=== PATIENT | female | born 1945 | race African-American/Black ===

== ENCOUNTER → 2017-09-05 | Outpatient (CLI) | payer OTHER ==
--- NOTE | 2017-09-05 14:00 | VAS ---
HISTORY: Extremity pain, swelling, and edema Study: Right lower extremity Doppler venous ultrasound. TECHNIQUE: Multiple desir scale and color flow Doppler images of the deep venous system were obtained of the right lower extremity. FINDINGS: The deep venous system of the right lower extremity evaluated from the level of the common femoral vein through the popliteal vein. Normal color flow and augmentation can be observed. In ad dition, normal compression is seen throughout the deep venous system. IMPRESSION: 1. Negative examination for DVT. Reported By:
== END ==
LOC: RAD 12:33
PROVIDERS: ATTEND Internal Medicine
DX: M79.604 Pain in right leg (principal); R60.1 Generalized edema
CPT/HCPCS: 93971

== ENCOUNTER 2017-09-20 10:15 | Day surgery (SDC) | payer OTHER ==
[~2017-09-20 10:15] MED LIST: TETRACAINE 0.5% OPHTH 1 DOSE AFFEYE ONE
[2017-09-20] MEDS ORDERED: VIGAMOX 0.5% OPHTH 1 DOSE AFFEYE ONE ×5 (10:20→13:52)
[2017-09-20] MEDS ORDERED: PROLENSA OPHTH 1 DOSE AFFEYE ONE (10:31)
[2017-09-20] MEDS ORDERED: ALPHAGAN-P OPHTH 1 DOSE AFFEYE ONE (10:32)
[2017-09-20] MEDS ORDERED: CYCLOGYL 1% OPHTH 1 DOSE OP ONE ×3 (10:33→10:35)
[2017-09-20] MEDS ORDERED: AK-DILATE 2.5% OPHTH 1 DOSE OP ONE ×3 (10:33→10:35)
[2017-09-20] MEDS ORDERED: MYDRIACIL OPHTH 1 DOSE AFFEYE ONE ×3 (10:33→10:35)
[2017-09-20] MEDS ORDERED: NS 500 ML IV 500 ML IV ONE (10:36)
[2017-09-20] MEDS ORDERED: VERSED ONE (10:45)
[2017-09-20] MEDS ORDERED: BETADINE OPHTH SOLN 5% EACHEYE ONE (13:35)
[2017-09-20] MEDS ORDERED: TETRACAINE 0.5% OPHTH 1 DOSE AFFEYE ONE ×2 (13:35→13:41)
[2017-09-20] MEDS ORDERED: XYLOCAINE-MPF 1% IJ ONE (13:41)
[2017-09-20] MEDS ORDERED: ADRENALINE CHL INJ IJ ONE (13:41)
[2017-09-20] MEDS ORDERED: DUOVISC IO ONE (13:41)
[2017-09-20] MEDS ORDERED: BSS OPHTH (PLAIN) 500 ML with VANCOMYCIN HCL 500 MG VIAL 25 MG, ADRENALINE CHL INJ 1 MG IR ONE ×3 (13:41)
[2017-09-20 14:08] VITALS: BP 151/76
== END 2017-09-20 14:12 | disposition home or self-care (01) ==
LOC: SURG1 10:15
PROVIDERS: ATTEND Ophthalmology
PROC: 08DK3ZZ Extraction of Left Lens, Percutaneous Approach (ICD-10-PCS; principal; 2017-09-20 20:15)
PROC: 08RK3JZ Replacement of Left Lens with Synthetic Substitute, Percutaneous Approach (ICD-10-PCS; principal; 2017-09-20 20:15)
DX: H25.12 Age-related nuclear cataract, left eye (principal); H25.012 Cortical age-related cataract, left eye
CPT/HCPCS: 99100; A4217; J0170; J2250; J3370

== ENCOUNTER 2017-10-04 08:02 | Day surgery (SDC) | payer OTHER ==
[2017-10-04] MEDS ORDERED: TETRACAINE 0.5% OPHTH 1 DOSE AFFEYE ONE ×5 (08:05→10:48)
[2017-10-04] MEDS ORDERED: VIGAMOX 0.5% OPHTH 1 DOSE AFFEYE ONE ×5 (08:06→10:48)
[2017-10-04] MEDS ORDERED: PROLENSA OPHTH 1 DOSE AFFEYE ONE (08:17)
[2017-10-04] MEDS ORDERED: ALPHAGAN-P OPHTH 1 DOSE AFFEYE ONE (08:18)
[2017-10-04] MEDS ORDERED: CYCLOGYL 1% OPHTH 1 DOSE OP ONE ×3 (08:19→08:25)
[2017-10-04] MEDS ORDERED: MYDRIACIL OPHTH 1 DOSE AFFEYE ONE ×3 (08:19→08:25)
[2017-10-04] MEDS ORDERED: AK-DILATE 2.5% OPHTH 1 DOSE OP ONE ×3 (08:19→08:25)
[2017-10-04] MEDS ORDERED: NS 500 ML IV 500 ML IV ONE (08:24)
[2017-10-04] MEDS ORDERED: BETADINE OPHTH SOLN 5% EACHEYE ONE (10:30)
[2017-10-04] MEDS ORDERED: ADRENALINE CHL INJ IJ ONE ×3 (10:37→10:48)
[2017-10-04] MEDS ORDERED: BSS OPHTH (PLAIN) 500 ML with VANCOMYCIN HCL 500 MG VIAL 25 MG, ADRENALINE CHL INJ 1 MG IR ONE ×3 (10:37)
[2017-10-04] MEDS ORDERED: DUOVISC IO ONE ×3 (10:37→10:48)
[2017-10-04] MEDS ORDERED: XYLOCAINE-MPF 1% IJ ONE ×3 (10:37→10:48)
[2017-10-04 11:20] VITALS: BP 165/68
[2017-10-04] MEDS ORDERED: DIPRIVAN VIAL ONE (15:44)
[2017-10-04] MEDS ORDERED: VERSED ONE (15:44)
== END 2017-10-04 11:10 | disposition home or self-care (01) ==
LOC: SURG1 08:02
PROVIDERS: ATTEND Ophthalmology
PROC: 08RJ3JZ Replacement of Right Lens with Synthetic Substitute, Percutaneous Approach (ICD-10-PCS; principal; 2017-10-04 12:45)
PROC: 08DJ3ZZ Extraction of Right Lens, Percutaneous Approach (ICD-10-PCS; principal; 2017-10-04 12:45)
DX: H25.11 Age-related nuclear cataract, right eye (principal); H25.011 Cortical age-related cataract, right eye
CPT/HCPCS: 99100; A4217; J0170; J2250; J3370; J3490

== ENCOUNTER 2023-03-10 14:23 | Inpatient (IN) ==
--- NOTE | 2023-03-10 14:27 | EKG ---
Test Reason : weakness Blood Pressure : */* mmHG Vent. Rate : 111 BPM Atrial Rate : 111 BPM P-R Int : 150 ms QRS Dur : 132 ms QT Int : 366 ms P-R-T Axes : 51 261 17 degrees QTc Int : 497 ms Sinus tachycardia Right bundle branch block Inferior infarct , age undetermined Abnormal ECG No previous ECGs available Confirmed by Louis Castro ([id number]) on 03/12/2023 9:18:13 AM Referred By: Confirmed By: Louis Castro
[2023-03-10] MEDS ORDERED: ZOFRAN INJ 4 MG VIAL IVP ONE (14:32)
[2023-03-10] MEDS ORDERED: NS 500 ML IV 500 ML IV ONE ×2 (14:33→14:54)
[2023-03-10] MEDS ORDERED: TYLENOL 500 MG TAB EXTRA STRENGTH PO STA (14:40)
--- NOTE | 2023-03-10 14:40 | DR.DIZZY ---
HPI Time seen Time Seen by Provider: 03/10/23 14:32 Complaint Chief Complaint Doctor Comments: 77-year-old female started feeling poorly yesterday. Was having shaking chills, sinus congestion, some nausea, episode of diarrhea. Not much coughing, spiked a fever today. Having generalized weakness. Has not been around known ill individuals, but did go to [facility] recently. No one ill at home. Has a 102 degree fever on arrival. Per family, was talking out of her head earlier. Nurses Notes Reviewed Nurses Notes Review: Yes Source History Provided: Patient Mode of Arrival Mode of Arrival: EMS Context Stroke Symptoms: None PMH PMH Past Medical History: Arthritis, Diabetes and Hypertension Past Surgical History: Yes Family History Family Medical History: Hypertension ROS Review of Systems Constitutional: Chills, Fever and Weakness Eyes: No Symptoms Reported ENTM: Nose Congestion Respiratoy: Non-Productive Cough Cardiovascular: No Symptoms Reported Gastrointestinal/Abdominal: Diarrhea and Nausea Genitourinary: No Symptoms Reported Neurological: Weakness Musculoskeletal: No Symptoms Reported Integumentary: No Symptoms Reported Hematologic/Lymphatic: No Symptoms Reported All Other Systems: Reviewed and Negative PE Vital Signs Vitals: Vital Signs Temperature 101.2 F Pulse Rate 91 Pulse Rate 90 Pulse Rate 92 Pulse Rate 92 Pulse Rate 92 Pulse Rate 91 Pulse Rate 93 Pulse Rate 96 Pulse Rate 97 Pulse Rate 101 Pulse Rate 106 Pulse Rate 104 Pulse Rate 108 Pulse Rate 115 Respiratory Rate 27 Respiratory Rate 23 Respiratory Rate 29 Respiratory Rate 53 Respiratory Rate 53 Respiratory Rate 57 Respiratory Rate 51 Respiratory Rate 36 Respiratory Rate 40 Respiratory Rate 43 Respiratory Rate 20 Respiratory Rate 42 Respiratory Rate 37 Respiratory Rate 39 Respiratory Rate 18 Blood Pressure 152/66 Blood Pressure 174/79 Blood Pressure 174/79 Blood Pressure 182/79 Blood Pressure 184/82 Blood Pressure 176/77 Blood Pressure 178/86 O2 Sat by Pulse Oximetry 100 O2 Sat by Pulse Oximetry 99 O2 Sat by Pulse Oximetry 99 O2 Sat by Pulse Oximetry 100 O2 Sat by Pulse Oximetry 100 O2 Sat by Pulse Oximetry 100 O2 Sat by Pulse Oximetry 100 O2 Sat by Pulse Oximetry 100 O2 Sat by Pulse Oximetry 100 O2 Sat by Pulse Oximetry 99 O2 Sat by Pulse Oximetry 99 O2 Sat by Pulse Oximetry 98 O2 Sat by Pulse Oximetry 99 General General Appearance: Alert and In No Apparent Distress Eyes Eye exam: PERRL and EOMI ENT ENT Exam: Normal Oropharynx, Mucous Membranes Moist and TM's Normal Bilaterally Neck Neck Exam: Normal Inspection and Full ROM; negative Tenderness Respiratory Respiratory Exam: Normal Lung Sounds Bilat; negative Accessory Muscle Use or Respiratory Distress Cardiovascular Cardiovascular Exam: Regular Rate, Normal Rhythm, Tachycardia and Normal Heart Sounds Abdominal Exam Abdominal Exam: Normal Bowel Sounds and Soft; negative Tenderness Extremeties Extremities Exam: Normal Inspection; negative Edema Neurologic Neurological Exam: Alert, Oriented X3 and CN II-XII Intact; negative Motor Sensory Deficit Skin Skin Exam: Warm and Dry COURSE Treatment Treatment: 77-year-old female with generalized weakness, fever 102 prior to arrival. Work-up initiated. Patient given IV fluids, p.o. Tylenol. 1658 -chest x-ray without obvious infiltrate. White count elevated 14,000, with a left shift chemistries overall acceptable, has low potassium at 3.1. COVID respiratory panel was negative. Lactic acid is good at 1.0. Patient is temperature down with the Tylenol. Still having generalized weakness, has a mild headache. Denies any chronic/new wounds or sores. U/A - with 3+ ketones, no infection. Will cover with IV Rocephin. Discussed with Dr Kim, will admit for observation, continue IV fluids. ROR Labs Reviewed Laboratory Results Reviewed?: Yes 03/10/23 14:55 03/10/23 14:55 Laboratory: WBC 14.3 X10^3/uL (3.6-10.0) H 03/10/23 14:55 RBC 4.51 X10^6/uL (3.5-5.4) 03/10/23 14:55 Hgb 12.5 g/dL (12.0-16.0) 03/10/23 14:55 Hct 37.5 % (36.0-47.0) 03/10/23 14:55 MCV 83.2 fL (80.0-100.0) 03/10/23 14:55 MCH 27.7 pg (27.0-34.0) 03/10/23 14:55 MCHC 33.3 g/dL (33.0-35.0) 03/10/23 14:55 RDW 15.9 % (11.6-16.5) 03/10/23 14:55 Plt Count 221 X10^3/uL (150.0-450.0) 03/10/23 14:55 Plt Count Comment Adequate (ADEQUATE) 03/10/23 14:55 MPV 8.5 fL (7.4-11.0) 03/10/23 14:55 Neut % (Auto) 93.2 % (42.0-75.0) H 03/10/23 14:55 Lymph % (Auto) 2.8 % (21.0-51.0) L 03/10/23 14:55 [place] % (Auto) 3.0 % (0.0-13.0) 03/10/23 14:55 Eos % (Auto) 0.1 % (0.9-2.9) L 03/10/23 14:55 Baso % (Auto) 0.9 % (0.2-1.0) 03/10/23 14:55 Neut # (Auto) 13.4 x10^3/uL (2.2-4.8) H 03/10/23 14:55 Lymph # (Auto) 0.4 X10^3/uL (1.3-2.9) L 03/10/23 14:55 [place] # (Auto) 0.4 x10^3/uL (0.3-0.8) 03/10/23 14:55 Eos # (Auto) 0.0 x10^3/uL (0.0-0.2) 03/10/23 14:55 Baso # (Auto) 0.1 X10^3/uL (0.0-0.1) 03/10/23 14:55 Absolute Nucleated RBC 0.0 /100WBC 03/10/23 14:55 Total Counted 100 03/10/23 14:55 Neutrophils % (Manual) 93 % (39-76) H 03/10/23 14:55 Lymphocytes % (Manual) 5 % (13-43) L 03/10/23 14:55 Monocytes % (Manual) 2 % (4-9) L 03/10/23 14:55 Plt Morphology Comment Normal (NORMAL) 03/10/23 14:55 RBC Morphology Normal (NORMAL) 03/10/23 14:55 Sodium 140 mmol/L (136-145) 03/10/23 14:55 Corrected Sodium 141 mmol/L (136-145) 03/10/23 14:55 Potassium 3.1 mmol/L (3.5-5.1) L 03/10/23 14:55 Chloride 105 mmol/L (98-107) 03/10/23 14:55 Carbon Dioxide 25.4 mmol/L (21-32) 03/10/23 14:55 BUN 12 mg/dL (7-18) 03/10/23 14:55 Creatinine 1.15 mg/dL (0.55-1.02) H 03/10/23 14:55 Est GFR (MDRD) Af Amer 59 (>60) 03/10/23 14:55 Est GFR (MDRD) Non-Af 49 (>60) L 03/10/23 14:55 Glucose 141 mg/dL (65-99) H 03/10/23 14:55 Lactic Acid 1.0 mmol/L (0.4-2.0) 03/10/23 14:55 Calcium 8.7 mg/dL (8.5-10.1) 03/10/23 14:55 Corrected Calcium 9.7 mg/dL (8.5-10.1) 03/10/23 14:55 Total Bilirubin 1.00 mg/dL (0.2-1.0) 03/10/23 14:55 AST 23 Units/L (15-37) 03/10/23 14:55 ALT 17 Units/L (12-78) 03/10/23 14:55 Alkaline Phosphatase 102 Units/L (46-116) 03/10/23 14:55 Total Protein 6.9 g/dL (6.4-8.2) 03/10/23 14:55 Albumin 2.8 g/dL (3.4-5.0) L 03/10/23 14:55 Globulin 4.1 g/dL (2.5-4.5) 03/10/23 14:55 Albumin/Globulin Ratio 0.7 Ratio (1.1-2.1) L 03/10/23 14:55 Lipase 49 Units/L (73-393) L 03/10/23 14:55 Specimen Type Clean catch urine 03/10/23 16:39 Urine Color Dark yellow (YELLOW) 03/10/23 16:39 Urine Appearance Slightly hazy (CLEAR) 03/10/23 16:39 Urine pH 5.0 (5.0 - 8.0) 03/10/23 16:39 Ur Specific [place] 1.020 (1.000-1.030) 03/10/23 16:39 Urine Protein 1+ (NEGATIVE) 03/10/23 16:39 Urine Glucose (UA) Negative (NEGATIVE) 03/10/23 16:39 Urine Ketones 3+ (NEGATIVE) 03/10/23 16:39 Urine Blood 4+ (NEGATIVE) 03/10/23 16:39 Urine Nitrite Negative (NEGATIVE) 03/10/23 16:39 Urine Bilirubin Negative (NEGATIVE) 03/10/23 16:39 Urine Urobilinogen Normal (NORMAL) 03/10/23 16:39 Ur Leukocyte Esterase Negative (NEGATIVE) 03/10/23 16:39 Urine RBC 3-5 /HPF (0-3) A 03/10/23 16:39 Urine WBC 0-2 /HPF (0-5) 03/10/23 16:39 Ur Squamous Epith Cells Many /HPF (NEGATIVE) 03/10/23 16:39 Urine Bacteria Trace /HPF (NEGATIVE) 03/10/23 16:39 Urine Yeast Few /HPF (NEGATIVE) 03/10/23 16:39 Ur Culture Indicated? No/not indicated 03/10/23 16:39 SARS-CoV-2 (PCR) Negative (NEGATIVE) 03/10/23 14:33 Influenza Type A (PCR) Negative (NEGATIVE) 03/10/23 14:33 Influenza Type B (PCR) Negative (NEGATIVE) 03/10/23 14:33 RSV (PCR) Negative (NEGATIVE) 03/10/23 14:33 WBC 14k, w/left shift. U/A - 3+ ketones. EKG Rate: 111 Seanor: RAD Rhythm: ST Block: RBBB ST: Nonsp Opioid Opioid Risk Tool Age ([place] box if 16-45): No History of Preadolescent Sexual Abuse: No Total: 0 Total Score Risk Category: Low Risk Copyright: Sergey GRULLON predicting aberrant behaviors Discharge Plan Diagnosis Discharge Problem: Acute febrile illness, Generalized weakness Discharge Plan Patient Disposition: 09 ADMITTED INPATIENT Condition: Stable Prescriptions: No Action metoprolol succinate 50 mg Tablet Extended Release 24 Hr 50 mg PO QHS chlorthalidone 25 mg Tablet 25 mg PO Q OTHER DAY famotidine 20 mg Tablet 20 mg PO BID docusate sodium 100 mg capsule 100 mg PO QDAY montelukast 10 mg Tablet 10 mg PO QPM ergocalciferol (vitamin D2) 1,250 mcg (50,000 unit) Capsule 1,250 mcg PO QWEEK loratadine 10 mg tablet 10 mg PO QDAY metoprolol tartrate 25 mg Tablet 25 mg PO QDAY PRN (Reason: palpitation) Edarbi 40 mg Tablet 40 mg PO QDAY Health Concerns: Post Hospitalization: new medications and changes needed to prevent readmission or further decline. Pt educated and given instructions on all concerns. Plan of Treatment: Continue with present treatment and follow up plan. Pt is to keep follow up appointment as instructed and take medications as ordered. Orders to Discharge Patient Discharge Orders: Transfer (Routine); Ordered 03/10/23 Ordered By: Abdi Louise Follow ups/Referrals Follow ups/Referrals: Marv Kim [Primary Care Provider] - 3 days
[2023-03-10] MEDS ORDERED: TYLENOL 500 MG TAB EXTRA STRENGTH PO ONE (14:54)
[2023-03-10] MEDS ORDERED: ZOFRAN INJ 4 MG VIAL ONE (14:54)
[2023-03-10 15:20] LABS: BASOPHILS # (AUTO) 0.1 X10^3/uL (0.0-0.1); BASOPHILS % (AUTO) 0.9 % (0.2-1.0); EOSINOPHILS % (AUTO) 0.1 % (0.9-2.9); HEMATOCRIT 37.5 % (36.0-47.0); HEMOGLOBIN 12.5 g/dL (12.0-16.0); LYMPHOCYTES # (AUTO) 0.4 X10^3/uL (1.3-2.9); LYMPHOCYTES % (AUTO) 2.8 % (21.0-51.0); MEAN CORPUSCULAR HEMOGLOBIN 27.7 pg (27.0-34.0); MEAN CORPUSCULAR HGB CONC 33.3 g/dL (33.0-35.0); MEAN CORPUSCULAR VOLUME 83.2 fL (80.0-100.0); MEAN PLATELET VOLUME 8.5 fL (7.4-11.0); MONOCYTES # (AUTO) 0.4 x10^3/uL (0.3-0.8); NEUTROPHILS # (AUTO) 13.4 x10^3/uL (2.2-4.8); NEUTROPHILS % (AUTO) 93.2 % (42.0-75.0); PLATELET COUNT 221 X10^3/uL (150.0-450.0); RED BLOOD COUNT 4.51 X10^6/uL (3.5-5.4); RED CELL DISTRIBUTION WIDTH 15.9 % (11.6-16.5); WHITE BLOOD COUNT 14.3 X10^3/uL (3.6-10.0)
[2023-03-10 15:34] LABS: PLATELET MORPHOLOGY COMMENT NORMAL (NORMAL)
[2023-03-10 15:37] LABS: ALBUMIN 2.8 g/dL (3.4-5.0); CALCIUM 8.7 mg/dL (8.5-10.1); CARBON DIOXIDE 25.4 mmol/L (21-32); COR CA(FOR HYPOALB) 9.7 mg/dL (8.5-10.1); CREATININE 1.15 mg/dL (0.55-1.02); POTASSIUM 3.1 mmol/L (3.5-5.1); TOTAL PROTEIN 6.9 g/dL (6.4-8.2)
[2023-03-10 16:51] LABS: BILIRUBIN,URINE NEGATIVE (NEGATIVE); BLOOD/HEMOGLOBIN,URINE 4+ (NEGATIVE); GLUCOSE, URINE NEGATIVE (NEGATIVE); KETONES,URINE 3+ (NEGATIVE); LEUKOCYTE ESTERASE ,URINE NEGATIVE (NEGATIVE); NITRITES,URINE NEGATIVE (NEGATIVE); PROTEIN,URINE 1+ (NEGATIVE); UROBILINOGEN,URINE NORMAL (NORMAL)
[2023-03-10 16:59] LABS: APPEARANCE,URINE SLIGHTLY HAZY (CLEAR); COLOR,URINE DARK YELLOW (YELLOW)
[2023-03-10 17:00] LABS: BACTERIA,URINE TRACE /HPF (NEGATIVE); SQUAMOUS EPITHELIAL CELL,UR MANY /HPF (NEGATIVE); YEAST,URINE FEW /HPF (NEGATIVE)
[2023-03-10] MEDS ORDERED: ROCEPHIN VIAL 1 GRAM IVP STA (17:07)
[2023-03-10] MEDS ORDERED: ROCEPHIN VIAL 1 GRAM ONE (17:21)
[2023-03-10] MEDS ORDERED: ZOFRAN INJ 4 MG VIAL IVP PRN (18:23)
[2023-03-10] MEDS ORDERED: CONSULT PHARMACY - POTASSIUM & MAGNESIUM XX SCH ×2 (18:23→19:00)
[2023-03-10] MEDS ORDERED: LOPRESSOR TAB 25 MG PO PRN (18:23)
[2023-03-10 19:33] VITALS: BMI 39.5
[2023-03-10] MEDS ORDERED: K-DUR TAB 20 MEQ PO ONE (20:00)
--- NOTE | 2023-03-10 20:49 | RAD ---
HISTORYFEVER Relevant Clinical InformationSTUDYCHEST, 1 VIEWCOMPARISONNoneFINDINGSThe trachea is midline. The cardiac silhouette is unremarkable. The lungs are clear without focal infiltrate or effusion. The bony thorax is unremarkable.IMPRESSIONNo acute cardiopulmonary findings .Electronically signed by: Zechariah Azar (Mar 10, 2023 20:48:21)
[2023-03-10] MEDS ORDERED: NovoLIN R (or HumuLIN R) SUBCUT PRN (20:54)
[2023-03-10] MEDS: PEPCID TAB 20 MG PO SCH (21:16)
[2023-03-10] MEDS: D5 NS 1,000 ML IV 1,000 ML IV SCH (21:16)
[2023-03-10] MEDS: TOPROL XL PO SCH (21:17)
[2023-03-10] MEDS: SINGULAIR TAB 10 MG PO SCH (21:17)
[2023-03-10] MEDS: MAG-OX TAB PO SCH ×2 (21:18→21:20)
[2023-03-10] MEDS: TYLENOL 500 MG TAB EXTRA STRENGTH PO PRN (21:19)
[2023-03-11 06:06] LABS: BASOPHILS % (AUTO) 0.3 % (0.2-1.0); EOSINOPHILS % (AUTO) 0.3 % (0.9-2.9); HEMATOCRIT 37.2 % (36.0-47.0); HEMOGLOBIN 12.5 g/dL (12.0-16.0); LYMPHOCYTES # (AUTO) 0.7 X10^3/uL (1.3-2.9); LYMPHOCYTES % (AUTO) 7.2 % (21.0-51.0); MEAN CORPUSCULAR HEMOGLOBIN 27.9 pg (27.0-34.0); MEAN CORPUSCULAR HGB CONC 33.5 g/dL (33.0-35.0); MEAN CORPUSCULAR VOLUME 83.4 fL (80.0-100.0); MONOCYTES # (AUTO) 0.4 x10^3/uL (0.3-0.8); MONOCYTES % (AUTO) 4.3 % (0.0-13.0); NEUTROPHILS # (AUTO) 8.7 x10^3/uL (2.2-4.8); NEUTROPHILS % (AUTO) 87.9 % (42.0-75.0); PLATELET COUNT 184 X10^3/uL (150.0-450.0); RED BLOOD COUNT 4.46 X10^6/uL (3.5-5.4); RED CELL DISTRIBUTION WIDTH 15.7 % (11.6-16.5)
[2023-03-11 06:21] LABS: ALANINE AMINOTRANSFERASE 32 Units/L (12-78); ALBUMIN 2.4 g/dL (3.4-5.0); ALKALINE PHOSPHATASE 108 Units/L (46-116); ASPARTATE AMINO TRANSFERASE 46 Units/L (15-37); BLOOD UREA NITROGEN 11 mg/dL (7-18); CALCIUM 8.4 mg/dL (8.5-10.1); CARBON DIOXIDE 27.9 mmol/L (21-32); CHLORIDE 108 mmol/L (98-107); COR CA(FOR HYPOALB) 9.7 mg/dL (8.5-10.1); COR NA(FOR HYPERGLY) 142 mmol/L (136-145); CREATININE 1.11 mg/dL (0.55-1.02); GLUCOSE 127 mg/dL (65-99); MAGNESIUM 1.9 mg/dL (2.0-2.9); SODIUM 141 mmol/L (136-145); TOTAL PROTEIN 6.4 g/dL (6.4-8.2); eGFR NON BLACK RACES 51 (>60)
[2023-03-11] MEDS ORDERED: CONSULT PHARMACY - POTASSIUM & MAGNESIUM XX SCH (07:00)
[2023-03-11] MEDS ORDERED: AZILSARTAN MEDOXOMIL 40 MG PO SCH (09:00)
[2023-03-11] MEDS ORDERED: ROCEPHIN VIAL 1 GRAM 1 G in NS 100 ML IV 100 ML IV SCH (09:00)
[2023-03-11] MEDS: D5 NS 1,000 ML IV 1,000 ML IV SCH (09:09)
[2023-03-11] MEDS: PEPCID TAB 20 MG PO SCH ×2 (09:14→21:16)
[2023-03-11] MEDS: CLARITIN PO SCH (09:14)
[2023-03-11] MEDS: MAG-OX TAB PO SCH ×2 (09:14→10:07)
[2023-03-11] MEDS: COLACE CAP 100 MG PO SCH (09:14)
[2023-03-11] MEDS: LOVENOX INJ 40 MG SYR SC SCH (10:05)
[2023-03-11] MEDS: TYLENOL 500 MG TAB EXTRA STRENGTH PO PRN ×2 (10:07→19:34)
[2023-03-11 11:27] LABS: CRYPTOSPORIDIUM PARVUM ANTIGEN NEGATIVE (NEGATIVE); GIARDIA LAMBLIA ANTIGEN NEGATIVE (NEGATIVE)
[2023-03-11] MEDS ORDERED: XOPENEX 1.25 MG/3 ML NEBULE NEB ONE ×2 (16:25→16:45)
--- NOTE | 2023-03-11 17:28 | DR.H&P ---
H&P - History & Physical for Day of: H&P Date: 03/10/23 - Chief Complaint Chief Complaint: COUGH, SINUS CONGESTION, WEAKNESS, FEVER, CHILLS, DIARRHEA - History of Present Illness History of Present Illness: IS A 77 YEAR OLD PATIENT OF OURS. SHE HAS A PMH OF ARTHRITIS, DM II, AND HYPERTENSION. SHE PRESENTED WITH COMPLAINTS OF GENERALIZED WEAKNESS, NON-PRODUCTIVE COUGH, SINUS CONGESTION, FEVER, CHILLS, AND DIARRHEA. PATIENT REPORTS THAT HER SYMPTOMS CAME ON ALL OF A SUDDEN ONE DAY PRIOR. SHE DENIES BEING AROUND KNOWN ILL IDIVIDUALS, BUT DID REPORT GOING TO [facility] RECENTLY. HER FAMILY IS AT BEDSIDE AND REPORTS THAT PATIENT HAS BEEN CONFUSED AND TALKING OUT OF HER HEAD. ON ARRIVAL TO THE HOSPITAL, HER VITALS WERE: 101.2-115-18-99%-178/86. LABS WERE OBTAINED. WBC 14.3, RBC 4.51, HGB 12.5, HCT 37.5, PLT COUNT 221, SODIUM 140, POTASSIUM 3.1, CHLORIDE 105, CARBON DIOXIDE 25.4, BUN 12, CREATININE 1.15, GLUCOSE 141, CALCIUM 8.7, TOTAL BILI 1.00, AST 23, ALT 17, ALK PHOS 102, TOTAL PROTEIN 6.9, ALBUMIN 2.8, LIPASE 49, MAGNESIUM 1.6. URINALYSIS WBC 0-2, RBC 3-5, BACTERIA TRACE, YEAST FEW. STOOL IS POSITIVE FOR BLOOD AND WHITE CELLS. C.DIFF AND H.PYLORI NEGATIVE. BLOOD AND STOOL CULTURES WERE SET UP. PRELIMINARY BLOOD CULTURES WERE POSITIVE FOR RARE GRAM NEGATIVE RODS ON GRAM STAIN. A CHEST XRAY WAS OBTAINED AND WAS UNREMARKABLE. AN EKG WAS OBTANED AND REVEALED: SINUS TACHYCARDIA AND RIGHT BUNDLE BRANCH BLOCK. HR 111 BPM. IN THE ER, SHE WAS GIVEN ZOFRAN 4MG IV X 1 DOSE, TYLENOL 1G PO X 1, NORMAL SALINE 500ML BOLUS, ROCEPHIN 1G IV X 1 DOSE, K-DUR 40MEQ PO X 1 DOSE, MAG OX 800MG PO X 2 DOSES. SHE WAS ADMITTED TO THE HOSPITAL FOR FURTHER EVALUATION AND TREATMENT OF BRONCHOPNEUMONIA, FEVER, GENERALIZED WEAKNESS, DIARRHEA, AMS. SHE WAS STARTED ON NORMAL SALINE AT 80 ML/HR, FORTAZ 1G IV Q8H, LEVAQUIN 500MG IV DAILY, DUONEBS TID PRN, DIFLUCAN 200MG IV DAILY, LOVENOX 40MG SC DAILY, ZOFRAN 4MG IV Q6H PRN, OTBS ACHS, HUMULIN R SLIDING SCALE, AND TYLENOL 1000MG PO Q4H PRN. HER HOME MEDICATIONS OF CHLORTHALIDONE, COLACE, PEPCID, CLARITIN, TOPROL XL, LOPRESSOR, SINGULAIR WERE RESUMED. WE WLL OBTAIN A KUB. OTHERWISE, WE PLAN TO FOLLOW UP WITH AM LABS AND CONTINUE TO MONITOR. TIME SPENT ON CLINICAL ASSESSMENT, REVIEWING LABS AND IMAGING, DECISION MAKING, AND DOCUMENTATION GREATER THAN 75 MINUTES. - Past Medical History Past Medical History: Hypertension, Diabetes, Arthritis - Past Surgical History Surgical History: Hysterectomy - Family History Family Medical History: Diabetes Mellitus - Social History Does patient currently use any type of tobacco product: No Have you used tobacco products in the last 12 months: No Type of Tobacco Use: None Does any household member use tobacco: No Alcohol Use: None - Review of Systems Constitutional: Fever, Chills, Weakness Eyes: No Symptoms Reported ENT: Nose Congestion Respiratory: Cough, Shortness of Breath Cardiovascular: No Symptoms Reported Gastrointestinal: Nausea Genitourinary: No Symptoms Reported Musculoskeletal: No Symptoms Reported Skin: No Symptoms Reported Neurological: Weakness - Physical Exam Vital Signs: Vital Signs Temperature 99.7 F Pulse Rate [Left] 84 Respiratory Rate 20 Respiratory Rate 20 Respiratory Rate 20 Blood Pressure [Left Arm] 134/61 O2 Sat by Pulse Oximetry 94 O2 Sat by Pulse Oximetry 95 Oriented: Normal Eyes: Normal Ear: Normal Nose: Normal Throat: Normal Respiratory: Diminished Throughout Cardiovascular: Tachycardia : Normal Auscultation: Bowel Sounds: Normal Palpation: Normal Tenderness: Normal Skin: Normal Musculoskeletal: Normal Psychiatric: Normal Mood Description: Calm Affect: Normal Speech Pattern: Clear - Assessment/Plan (1) Bronchopneumonia Status: Acute Plan: ADMIT, AIT PANEL, DAILY CHEST XRAY, NORMAL SALINE AT 80 ML/HR, FORTAZ 1G IV Q8H, LEVAQUIN 500MG IV DAILY, DUONEBS TID PRN, DIFLUCAN 200MG IV DAILY, LOVENOX 40MG SC DAILY, ZOFRAN 4MG IV Q6H PRN, OTBS ACHS, HUMULIN R SLIDING SCALE, AND TYLENOL 1000MG PO Q4H PRN. (2) Bacteremia Status: Acute (3) Diarrhea Qualifiers: Diarrhea type: presumed infectious Qualified Code(s): R19.7 - Diarrhea, unspecified Status: Acute Plan: STOOL STUDIES (4) Altered mental status Qualifiers: Altered mental status type: transient alteration of awareness Qualified Code(s): R40.4 - Transient alteration of awareness Status: Acute (5) Acute febrile illness Status: Acute (6) Generalized weakness Status: Acute (7) DM II (diabetes mellitus, type II), controlled Qualifiers: Diabetes mellitus fci insulin use: with emt intermediate use Diabetes mellitus complication status: with unspecified complications Qualified Code(s): E11.8 - Type 2 diabetes mellitus with unspecified complications; 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 Plan: OTBS ACHS, HUMULIN R SLIDING SCALE (8) Hypertension Qualifiers: Hypertension type: primary hypertension Qualified Code(s): I10 - Essential (primary) hypertension Status: Chronic Plan: RESUME TOPROL XL AT HS, RESUME LOPRESSOR - Allergies Allergies/Adverse Reactions: Allergies Allergy/AdvReac Type Severity Reaction Status Date / Time No Known Drug Allergies Allergy Verified 09/20/17 11:09 - Medications Home Medications: Home Medications Medication Instructions Recorded Confirmed azilsartan medoxomil 40 mg tablet 40 mg PO QDAY 03/10/23 03/10/23 (Edarbi) chlorthalidone 25 mg tablet 25 mg PO Q OTHER DAY 03/10/23 03/10/23 docusate sodium 100 mg capsule 100 mg PO QDAY 03/10/23 03/10/23 ergocalciferol (vitamin D2) 1,250 1,250 mcg PO QWEEK 03/10/23 03/10/23 mcg (50,000 unit) capsule famotidine 20 mg tablet 20 mg PO BID 03/10/23 03/10/23 loratadine 10 mg tablet 10 mg PO QDAY 03/10/23 03/10/23 metoprolol succinate 50 mg 50 mg PO QHS 03/10/23 03/10/23 tablet,extended release 24 hr metoprolol tartrate 25 mg tablet 25 mg PO QDAY PRN palpitation 03/10/23 03/10/23 montelukast 10 mg tablet 10 mg PO QPM 03/10/23 03/10/23
[2023-03-11] MEDS ORDERED: LEVAQUIN PREMIX IV 750 MG 750 MG/150 ML BAG IV SCH (18:00)
[2023-03-11] MEDS: DIFLUCAN 200 MG IV PREMIX* 200 MG/100 ML BAG IV SCH (18:01)
[2023-03-11] MEDS: SNACK - Diabetic Appropriate PO SCH (19:37)
[2023-03-11] MEDS: NS 1,000 ML IV 1,000 ML IV SCH (19:59)
[2023-03-11] MEDS: SINGULAIR TAB 10 MG PO SCH (21:16)
[2023-03-11] MEDS: TOPROL XL PO SCH (21:16)
[2023-03-11] MEDS: FORTAZ or TAZICEF VIAL INJ 1 G in NS 100 ML IV 100 ML IV SCH (21:16)
[2023-03-12] MEDS: DUONEB 0.5 MG/3 MG (3 mL) NEB PRN ×3 (03:10→20:56)
[2023-03-12] MEDS: NS 1,000 ML IV 1,000 ML IV SCH ×2 (05:03→20:44)
[2023-03-12 05:37] LABS: BASOPHILS # (AUTO) 0.1 X10^3/uL (0.0-0.1); BASOPHILS % (AUTO) 0.9 % (0.2-1.0); EOSINOPHILS % (AUTO) 0.2 % (0.9-2.9); HEMATOCRIT 34.6 % (36.0-47.0); HEMOGLOBIN 11.5 g/dL (12.0-16.0); LYMPHOCYTES # (AUTO) 1.5 X10^3/uL (1.3-2.9); LYMPHOCYTES % (AUTO) 13.5 % (21.0-51.0); MEAN CORPUSCULAR HEMOGLOBIN 27.7 pg (27.0-34.0); MEAN CORPUSCULAR HGB CONC 33.2 g/dL (33.0-35.0); MEAN CORPUSCULAR VOLUME 83.6 fL (80.0-100.0); MEAN PLATELET VOLUME 8.8 fL (7.4-11.0); MONOCYTES # (AUTO) 0.6 x10^3/uL (0.3-0.8); NEUTROPHILS # (AUTO) 8.9 x10^3/uL (2.2-4.8); NEUTROPHILS % (AUTO) 80.4 % (42.0-75.0); PLATELET COUNT 172 X10^3/uL (150.0-450.0); RED BLOOD COUNT 4.14 X10^6/uL (3.5-5.4); RED CELL DISTRIBUTION WIDTH 15.9 % (11.6-16.5); WHITE BLOOD COUNT 11.1 X10^3/uL (3.6-10.0)
[2023-03-12 05:58] LABS: ALBUMIN 2.2 g/dL (3.4-5.0); CALCIUM 7.9 mg/dL (8.5-10.1); CARBON DIOXIDE 26.5 mmol/L (21-32); COR CA(FOR HYPOALB) 9.3 mg/dL (8.5-10.1); CREATININE 1.21 mg/dL (0.55-1.02); POTASSIUM 3.6 mmol/L (3.5-5.1); TOTAL PROTEIN 5.9 g/dL (6.4-8.2)
[2023-03-12] MEDS ORDERED: CONSULT PHARMACY - POTASSIUM & MAGNESIUM XX SCH (07:00)
[2023-03-12] MEDS: CLARITIN PO SCH (08:56)
[2023-03-12] MEDS: PEPCID TAB 20 MG PO SCH ×2 (08:56→20:13)
[2023-03-12] MEDS: COLACE CAP 100 MG PO SCH ×2 (08:56→09:09)
[2023-03-12] MEDS: LOVENOX INJ 40 MG SYR SC SCH (08:56)
[2023-03-12] MEDS ORDERED: K-DUR TAB 20 MEQ PO SCH (09:00)
[2023-03-12] MEDS ORDERED: LEVAQUIN PREMIX IV 500 MG 500 MG/100 ML BAG IV SCH (09:00)
[2023-03-12] MEDS ORDERED: MAG-OX TAB PO SCH (09:00)
[2023-03-12] MEDS: DIFLUCAN 200 MG IV PREMIX* 200 MG/100 ML BAG IV SCH (09:01)
[2023-03-12] MEDS: FORTAZ or TAZICEF VIAL INJ 1 G in NS 100 ML IV 100 ML IV SCH ×2 (09:01→20:14)
--- NOTE | 2023-03-12 10:04 | RAD ---
EXAM:KUBHISTORY:Pain diarrheaCOMPARISON:NoneFINDINGS:Normal intestinal gas pattern without evidence for obstruction or ileus. There is no definite mass, calcification, or organ enlargement or ascites.IMPRESSION:Within normal limits.THIS IS AN ELECTRONICALLY VERIFIED FINAL [id number]/12/2023 10:00 AM - Electronically signed by Hill Franco MD
--- NOTE | 2023-03-12 11:40 | PCM.PROG ---
Progress Note Progress Note for Day of Date of Exam: 03/12/23 Subjective Subjective: Patient seen at bedside, no acute events overnight. She feels slightly better. She states her abdominal pain and diarrhea has improved. She had one BM this morning. She states she did not eat much for breakfast but will try for lunch. She did have a temp of 102.8 overnight and blood cultures were collected. Her cultures on admission are positive for gram (-) rods bacteremia. Stool studies show + FOBT and + WBCs, stool Cx is negative. She is currently on IV Fortaz and levaquin. Labs/imaging reviewed 03/11/23 Blood Cx: positive 03/10/23 Blood Cx x 2: Gram (-) rods Plan: Continue IV Fortaz and Levaquin and IV hydration. Tylenol prn. Follow pending Cx. Advance diet as tolerated. Replace electrolytes prn. Continue home medications. Ambulate as tolerated. Monitor AM labs/imaging. Past Medical Family Social History Allergies: Allergies No Known Drug Allergies Allergy (Verified 09/20/17 11:09) Vital Signs and I&O's Vital Signs: Vital Signs Temperature 100.0 F Temperature 98.4 F Pulse Rate [Left] 82 Pulse Rate [Left] 92 Respiratory Rate 20 Respiratory Rate 18 Blood Pressure [Left Arm] 145/67 Blood Pressure [Left Arm] 133/60 O2 Sat by Pulse Oximetry 97 O2 Sat by Pulse Oximetry 99 Intake and Output: Intake & Output 03/09/23 03/10/23 03/11/23 03/12/23 23:59 23:59 23:59 23:59 Intake Total 2236 989 / 989 Balance 2236 989 / 989 Physical Exam Oriented: Normal Eyes: Normal Ear: Normal Nose: Normal Throat: Normal Cardiovascular: Normal Auscultation: Bowel Sounds: Normal Tenderness: Normal Skin: Normal Musculoskeletal: Normal Psychiatric: Normal Mood Description: Calm Affect: Normal Speech Pattern: Clear and Appropriate Laboratory and Diagnostics 03/12/23 05:15 03/12/23 05:15 Labs: 03/11/23 19:47 Blood Blood Culture Gram Stain - Final 03/11/23 19:40 Blood Blood Culture Gram Stain - Final 03/11/23 10:21 Stool Stool Culture - Preliminary 03/11/23 10:21 Stool - Final 03/11/23 16:25 Urine,Clean Catch Urine Culture - Preliminary 03/10/23 14:55 Blood Blood Culture Gram Stain - Final 03/10/23 14:55 Blood Blood Culture - Preliminary 03/10/23 15:07 Blood Blood Culture Gram Stain - Final 03/10/23 15:07 Blood Blood Culture - Preliminary Laboratory WBC 11.1 X10^3/uL (3.6-10.0) H 03/12/23 05:15 RBC 4.14 X10^6/uL (3.5-5.4) 03/12/23 05:15 Hgb 11.5 g/dL (12.0-16.0) L 03/12/23 05:15 Hct 34.6 % (36.0-47.0) L 03/12/23 05:15 MCV 83.6 fL (80.0-100.0) 03/12/23 05:15 MCH 27.7 pg (27.0-34.0) 03/12/23 05:15 MCHC 33.2 g/dL (33.0-35.0) 03/12/23 05:15 RDW 15.9 % (11.6-16.5) 03/12/23 05:15 Plt Count 172 X10^3/uL (150.0-450.0) 03/12/23 05:15 Plt Count Comment Adequate (ADEQUATE) 03/10/23 14:55 MPV 8.8 fL (7.4-11.0) 03/12/23 05:15 Neut % (Auto) 80.4 % (42.0-75.0) H 03/12/23 05:15 Lymph % (Auto) 13.5 % (21.0-51.0) L 03/12/23 05:15 [place] % (Auto) 5.0 % (0.0-13.0) 03/12/23 05:15 Eos % (Auto) 0.2 % (0.9-2.9) L 03/12/23 05:15 Baso % (Auto) 0.9 % (0.2-1.0) 03/12/23 05:15 Neut # (Auto) 8.9 x10^3/uL (2.2-4.8) H 03/12/23 05:15 Lymph # (Auto) 1.5 X10^3/uL (1.3-2.9) 03/12/23 05:15 [place] # (Auto) 0.6 x10^3/uL (0.3-0.8) 03/12/23 05:15 Eos # (Auto) 0.0 x10^3/uL (0.0-0.2) 03/12/23 05:15 Baso # (Auto) 0.1 X10^3/uL (0.0-0.1) 03/12/23 05:15 Absolute Nucleated RBC 0.0 /100WBC 03/12/23 05:15 Total Counted 100 03/10/23 14:55 Neutrophils % (Manual) 93 % (39-76) H 03/10/23 14:55 Lymphocytes % (Manual) 5 % (13-43) L 03/10/23 14:55 Monocytes % (Manual) 2 % (4-9) L 03/10/23 14:55 Plt Morphology Comment Normal (NORMAL) 03/10/23 14:55 RBC Morphology Normal (NORMAL) 03/10/23 14:55 Sodium 141 mmol/L (136-145) 03/12/23 05:15 Corrected Sodium 142 mmol/L (136-145) 03/12/23 05:15 Potassium 3.6 mmol/L (3.5-5.1) 03/12/23 05:15 Chloride 108 mmol/L (98-107) H 03/12/23 05:15 Carbon Dioxide 26.5 mmol/L (21-32) 03/12/23 05:15 BUN 9 mg/dL (7-18) 03/12/23 05:15 Creatinine 1.21 mg/dL (0.55-1.02) H 03/12/23 05:15 Est GFR (MDRD) Af Amer 55 (>60) L 03/12/23 05:15 Est GFR (MDRD) Non-Af 46 (>60) L 03/12/23 05:15 Glucose 123 mg/dL (65-99) H 03/12/23 05:15 POC Glucose (mg/dL) 120 mg/dL (65-99) H 03/12/23 11:04 Lactic Acid 0.6 mmol/L (0.4-2.0) 03/10/23 19:07 Calcium 7.9 mg/dL (8.5-10.1) L 03/12/23 05:15 Corrected Calcium 9.3 mg/dL (8.5-10.1) 03/12/23 05:15 Magnesium 1.7 mg/dL (2.0-2.9) L 03/12/23 05:15 Total Bilirubin 0.90 mg/dL (0.2-1.0) 03/12/23 05:15 AST 32 Units/L (15-37) 03/12/23 05:15 ALT 33 Units/L (12-78) 03/12/23 05:15 Alkaline Phosphatase 120 Units/L (46-116) H 03/12/23 05:15 Total Protein 5.9 g/dL (6.4-8.2) L 03/12/23 05:15 Albumin 2.2 g/dL (3.4-5.0) L 03/12/23 05:15 Globulin 3.7 g/dL (2.5-4.5) 03/12/23 05:15 Albumin/Globulin Ratio 0.6 Ratio (1.1-2.1) L 03/12/23 05:15 Lipase 49 Units/L (73-393) L 03/10/23 14:55 Specimen Type Clean catch urine 03/10/23 16:39 Urine Color Dark yellow (YELLOW) 03/10/23 16:39 Urine Appearance Slightly hazy (CLEAR) 03/10/23 16:39 Urine pH 5.0 (5.0 - 8.0) 03/10/23 16:39 Ur Specific [place] 1.020 (1.000-1.030) 03/10/23 16:39 Urine Protein 1+ (NEGATIVE) 03/10/23 16:39 Urine Glucose (UA) Negative (NEGATIVE) 03/10/23 16:39 Urine Ketones 3+ (NEGATIVE) 03/10/23 16:39 Urine Blood 4+ (NEGATIVE) 03/10/23 16:39 Urine Nitrite Negative (NEGATIVE) 03/10/23 16:39 Urine Bilirubin Negative (NEGATIVE) 03/10/23 16:39 Urine Urobilinogen Normal (NORMAL) 03/10/23 16:39 Ur Leukocyte Esterase Negative (NEGATIVE) 03/10/23 16:39 Urine RBC 3-5 /HPF (0-3) A 03/10/23 16:39 Urine WBC 0-2 /HPF (0-5) 03/10/23 16:39 Ur Squamous Epith Cells Many /HPF (NEGATIVE) 03/10/23 16:39 Urine Bacteria Trace /HPF (NEGATIVE) 03/10/23 16:39 Urine Yeast Few /HPF (NEGATIVE) 03/10/23 16:39 Ur Culture Indicated? No/not indicated 03/10/23 16:39 Stl Occult Blood (IFOB) Positive (NEGATIVE) A 03/11/23 10:21 Stool for White Cells Positive (NEGATIVE) A 03/11/23 10:21 Stl C. diff Tox B Gene Negative (NEGATIVE) 03/11/23 10:21 Stl C. diff [id number] Presumptive negative (NEGATIVE) 03/11/23 10:21 Stool H. pylori Ag Negative (NEGATIVE) 03/11/23 10:21 SARS-CoV-2 (PCR) Negative (NEGATIVE) 03/10/23 14:33 Cryptosporid parvum Ag Negative (NEGATIVE) 03/11/23 10:21 Giardia lamblia Ag Negative (NEGATIVE) 03/11/23 10:21 Influenza Type A (PCR) Negative (NEGATIVE) 03/10/23 14:33 Influenza Type B (PCR) Negative (NEGATIVE) 03/10/23 14:33 RSV (PCR) Negative (NEGATIVE) 03/10/23 14:33 Plan (1) Diarrhea: Status: Acute Qualifiers: Diarrhea type: presumed infectious Qualified Code(s): R19.7 - Diarrhea, unspecified (2) Bacteremia: Status: Acute (3) Bronchopneumonia: Status: Acute (4) Altered mental status: Status: Acute Qualifiers: Altered mental status type: transient alteration of awareness Qualified Code(s): R40.4 - Transient alteration of awareness (5) Acute febrile illness: Status: Acute (6) Generalized weakness: Status: Acute (7) DM II (diabetes mellitus, type II), controlled: Status: Chronic Qualifiers: Diabetes mellitus complication status: with unspecified complications Diabetes mellitus terminologist insulin use: with terminologist use Qualified Code(s): E11.8 - Type 2 diabetes mellitus with unspecified complications; Z79.4 - intermodal dispatcher (current) use of insulin (8) Hypertension: Status: Chronic Qualifiers: Hypertension type: primary hypertension Qualified Code(s): I10 - Essential (primary) hypertension
[2023-03-12] MEDS: CHLORTHALIDONE PO SCH (12:43)
[2023-03-12] MEDS: COZAAR PO SCH (12:44)
--- NOTE | 2023-03-12 13:43 | RAD ---
EXAM:AP chestHISTORY:SOBCOMPARISON:March 10, 2023FINDINGS:Cardiac size remains normal with no evidence for developing pulmonary consolidation, edema or pleural fluid.IMPRESSION:No interval change or acute chest findings.THIS IS AN ELECTRONICALLY VERIFIED FINAL [id number]/12/2023 1:39 PM - Electronically signed by Hill Franco MD
[2023-03-12] MEDS: TYLENOL 500 MG TAB EXTRA STRENGTH PO PRN (17:18)
[2023-03-12] MEDS: SINGULAIR TAB 10 MG PO SCH (20:12)
[2023-03-12] MEDS: TOPROL XL PO SCH (20:13)
[2023-03-12] MEDS: SNACK - Diabetic Appropriate PO SCH (20:45)
[2023-03-13] MEDS: NS 1,000 ML IV 1,000 ML IV SCH ×2 (02:35→10:32)
[2023-03-13 05:25] LABS: BASOPHILS # (AUTO) 0.1 X10^3/uL (0.0-0.1); BASOPHILS % (AUTO) 1.1 % (0.2-1.0); EOSINOPHILS # (AUTO) 0.1 x10^3/uL (0.0-0.2); EOSINOPHILS % (AUTO) 0.8 % (0.9-2.9); LYMPHOCYTES # (AUTO) 1.8 X10^3/uL (1.3-2.9); LYMPHOCYTES % (AUTO) 18.1 % (21.0-51.0); MEAN CORPUSCULAR HEMOGLOBIN 27.7 pg (27.0-34.0); MEAN CORPUSCULAR HGB CONC 33.4 g/dL (33.0-35.0); MEAN CORPUSCULAR VOLUME 83.1 fL (80.0-100.0); MEAN PLATELET VOLUME 9.6 fL (7.4-11.0); MONOCYTES # (AUTO) 0.7 x10^3/uL (0.3-0.8); MONOCYTES % (AUTO) 7.2 % (0.0-13.0); NEUTROPHILS # (AUTO) 7.2 x10^3/uL (2.2-4.8); NEUTROPHILS % (AUTO) 72.8 % (42.0-75.0); PLATELET COUNT 166 X10^3/uL (150.0-450.0); RED BLOOD COUNT 3.97 X10^6/uL (3.5-5.4); RED CELL DISTRIBUTION WIDTH 15.9 % (11.6-16.5); WHITE BLOOD COUNT 9.9 X10^3/uL (3.6-10.0)
[2023-03-13 05:38] LABS: ALANINE AMINOTRANSFERASE 30 Units/L (12-78); ALBUMIN 2.2 g/dL (3.4-5.0); ALKALINE PHOSPHATASE 133 Units/L (46-116); ASPARTATE AMINO TRANSFERASE 25 Units/L (15-37); BLOOD UREA NITROGEN 7 mg/dL (7-18); CALCIUM 8.3 mg/dL (8.5-10.1); CARBON DIOXIDE 29.2 mmol/L (21-32); CHLORIDE 107 mmol/L (98-107); COR CA(FOR HYPOALB) 9.7 mg/dL (8.5-10.1); COR NA(FOR HYPERGLY) 140 mmol/L (136-145); CREATININE 1.09 mg/dL (0.55-1.02); GLUCOSE 114 mg/dL (65-99); POTASSIUM 3.6 mmol/L (3.5-5.1); SODIUM 140 mmol/L (136-145); TOTAL PROTEIN 5.9 g/dL (6.4-8.2); eGFR NON BLACK RACES 52 (>60)
[2023-03-13] MEDS ORDERED: CONSULT PHARMACY - POTASSIUM & MAGNESIUM XX SCH (06:00)
[2023-03-13] MEDS: DUONEB 0.5 MG/3 MG (3 mL) NEB PRN ×3 (07:47→20:29)
[2023-03-13] MEDS ORDERED: MAG-OX TAB PO SCH (09:00)
[2023-03-13] MEDS ORDERED: K-DUR TAB 20 MEQ PO SCH (09:00)
[2023-03-13] MEDS: FORTAZ or TAZICEF VIAL INJ 1 G in NS 100 ML IV 100 ML IV SCH (09:46)
[2023-03-13] MEDS: LOVENOX INJ 40 MG SYR SC SCH (09:46)
[2023-03-13] MEDS: PEPCID TAB 20 MG PO SCH ×2 (09:46→20:57)
[2023-03-13] MEDS: DIFLUCAN 200 MG IV PREMIX* 200 MG/100 ML BAG IV SCH (09:47)
[2023-03-13] MEDS: COZAAR PO SCH (10:31)
[2023-03-13] MEDS: CLARITIN PO SCH (10:31)
[2023-03-13] MEDS: INVanz INJ 1 GRAM VIAL 1 G in NS 100 ML IV 100 ML IV SCH (10:32)
--- NOTE | 2023-03-13 11:21 | PCM.PROG ---
Progress Note Progress Note for Day of Date of Exam: 03/13/23 Subjective Subjective: Patient seen at bedside, no acute events overnight. She is feeling better. She has been ambulating in the room a little bit. She did have some wheezing this morning, had nebs and it improved. Denies chest pain or SOB. She is currently being treated for bacteremia and generalized weakness. Labs/imaging reviewed - BNP 154 - CXR: no acute process 03/11/23 Blood Cx: Gram (-) rods x 2 03/10/23 Blood Cx x 2: ESBL Ecoli. Plan:Start Invanz, stop IV Fortaz and Levaquin. Tylenol prn. Follow CXR. Follow pending Cx. Advance diet as tolerated. Replace electrolytes prn. Continue home medications. Ambulate as tolerated. PT/OT. Monitor AM labs/imaging. Past Medical Family Social History Allergies: Allergies No Known Drug Allergies Allergy (Verified 09/20/17 11:09) Vital Signs and I&O's Vital Signs: Vital Signs Temperature 98.4 F Temperature 99.3 F Pulse Rate [Left] 84 Pulse Rate [Left] 71 Pulse Rate 85 Respiratory Rate 22 Respiratory Rate 20 Blood Pressure [Left Arm] 180/82 Blood Pressure [Left Arm] 149/68 O2 Sat by Pulse Oximetry 97 O2 Sat by Pulse Oximetry 95 O2 Sat by Pulse Oximetry 97 Intake and Output: Intake & Output 03/10/23 03/11/23 03/12/23 03/13/23 23:59 23:59 23:59 23:59 Intake Total 2237 / 2237 3153 / 3153 784 / 784 Balance 2237 / 2237 3153 / 3153 784 / 784 Physical Exam Oriented: Normal Eyes: Normal Ear: Normal Nose: Normal Throat: Normal Respiratory: Generalized and Diminished Cardiovascular: Normal Auscultation: Bowel Sounds: Normal Tenderness: Normal Skin: Normal Musculoskeletal: Normal Psychiatric: Normal Mood Description: Calm Affect: Normal Speech Pattern: Clear and Appropriate Laboratory and Diagnostics 03/13/23 04:15 03/13/23 04:15 Labs: 03/11/23 19:47 Blood Blood Culture Gram Stain - Final 03/11/23 19:47 Blood Blood Culture - Preliminary 03/11/23 19:40 Blood Blood Culture Gram Stain - Final 03/11/23 19:40 Blood Blood Culture - Preliminary 03/11/23 16:25 Urine,Clean Catch Urine Culture - Final 03/11/23 10:21 Stool Stool Culture - Final 03/11/23 10:21 Stool - Final 03/10/23 15:07 Blood Blood Culture Gram Stain - Final 03/10/23 15:07 Blood Blood Culture - Final Escherichia Coli Esbl 03/10/23 14:55 Blood Blood Culture Gram Stain - Final 03/10/23 14:55 Blood Blood Culture - Final Escherichia Coli Esbl Laboratory WBC 9.9 X10^3/uL (3.6-10.0) 03/13/23 04:15 RBC 3.97 X10^6/uL (3.5-5.4) 03/13/23 04:15 Hgb 11.0 g/dL (12.0-16.0) L 03/13/23 04:15 Hct 33.0 % (36.0-47.0) L 03/13/23 04:15 MCV 83.1 fL (80.0-100.0) 03/13/23 04:15 MCH 27.7 pg (27.0-34.0) 03/13/23 04:15 MCHC 33.4 g/dL (33.0-35.0) 03/13/23 04:15 RDW 15.9 % (11.6-16.5) 03/13/23 04:15 Plt Count 166 X10^3/uL (150.0-450.0) 03/13/23 04:15 Plt Count Comment Adequate (ADEQUATE) 03/10/23 14:55 MPV 9.6 fL (7.4-11.0) 03/13/23 04:15 Neut % (Auto) 72.8 % (42.0-75.0) 03/13/23 04:15 Lymph % (Auto) 18.1 % (21.0-51.0) L 03/13/23 04:15 [place] % (Auto) 7.2 % (0.0-13.0) 03/13/23 04:15 Eos % (Auto) 0.8 % (0.9-2.9) L 03/13/23 04:15 Baso % (Auto) 1.1 % (0.2-1.0) H 03/13/23 04:15 Neut # (Auto) 7.2 x10^3/uL (2.2-4.8) H 03/13/23 04:15 Lymph # (Auto) 1.8 X10^3/uL (1.3-2.9) 03/13/23 04:15 [place] # (Auto) 0.7 x10^3/uL (0.3-0.8) 03/13/23 04:15 Eos # (Auto) 0.1 x10^3/uL (0.0-0.2) 03/13/23 04:15 Baso # (Auto) 0.1 X10^3/uL (0.0-0.1) 03/13/23 04:15 Absolute Nucleated RBC 0.0 /100WBC 03/13/23 04:15 Total Counted 100 03/10/23 14:55 Neutrophils % (Manual) 93 % (39-76) H 03/10/23 14:55 Lymphocytes % (Manual) 5 % (13-43) L 03/10/23 14:55 Monocytes % (Manual) 2 % (4-9) L 03/10/23 14:55 Plt Morphology Comment Normal (NORMAL) 03/10/23 14:55 RBC Morphology Normal (NORMAL) 03/10/23 14:55 Sodium 140 mmol/L (136-145) 03/13/23 04:15 Corrected Sodium 140 mmol/L (136-145) 03/13/23 04:15 Potassium 3.6 mmol/L (3.5-5.1) 03/13/23 04:15 Chloride 107 mmol/L (98-107) 03/13/23 04:15 Carbon Dioxide 29.2 mmol/L (21-32) 03/13/23 04:15 BUN 7 mg/dL (7-18) 03/13/23 04:15 Creatinine 1.09 mg/dL (0.55-1.02) H 03/13/23 04:15 Est GFR (MDRD) Af Amer > 60 (>60) 03/13/23 04:15 Est GFR (MDRD) Non-Af 52 (>60) L 03/13/23 04:15 Glucose 114 mg/dL (65-99) H 03/13/23 04:15 POC Glucose (mg/dL) 114 mg/dL (65-99) H 03/13/23 05:31 Lactic Acid 0.6 mmol/L (0.4-2.0) 03/10/23 19:07 Calcium 8.3 mg/dL (8.5-10.1) L 03/13/23 04:15 Corrected Calcium 9.7 mg/dL (8.5-10.1) 03/13/23 04:15 Magnesium 1.8 mg/dL (2.0-2.9) L 03/13/23 04:15 Total Bilirubin 1.00 mg/dL (0.2-1.0) 03/13/23 04:15 AST 25 Units/L (15-37) 03/13/23 04:15 ALT 30 Units/L (12-78) 03/13/23 04:15 Alkaline Phosphatase 133 Units/L (46-116) H 03/13/23 04:15 B-Natriuretic Peptide 154 pg/mL (0-79) H 03/13/23 04:15 Total Protein 5.9 g/dL (6.4-8.2) L 03/13/23 04:15 Albumin 2.2 g/dL (3.4-5.0) L 03/13/23 04:15 Globulin 3.7 g/dL (2.5-4.5) 03/13/23 04:15 Albumin/Globulin Ratio 0.6 Ratio (1.1-2.1) L 03/13/23 04:15 Lipase 49 Units/L (73-393) L 03/10/23 14:55 Specimen Type Clean catch urine 03/10/23 16:39 Urine Color Dark yellow (YELLOW) 03/10/23 16:39 Urine Appearance Slightly hazy (CLEAR) 03/10/23 16:39 Urine pH 5.0 (5.0 - 8.0) 03/10/23 16:39 Ur Specific [place] 1.020 (1.000-1.030) 03/10/23 16:39 Urine Protein 1+ (NEGATIVE) 03/10/23 16:39 Urine Glucose (UA) Negative (NEGATIVE) 03/10/23 16:39 Urine Ketones 3+ (NEGATIVE) 03/10/23 16:39 Urine Blood 4+ (NEGATIVE) 03/10/23 16:39 Urine Nitrite Negative (NEGATIVE) 03/10/23 16:39 Urine Bilirubin Negative (NEGATIVE) 03/10/23 16:39 Urine Urobilinogen Normal (NORMAL) 03/10/23 16:39 Ur Leukocyte Esterase Negative (NEGATIVE) 03/10/23 16:39 Urine RBC 3-5 /HPF (0-3) A 03/10/23 16:39 Urine WBC 0-2 /HPF (0-5) 03/10/23 16:39 Ur Squamous Epith Cells Many /HPF (NEGATIVE) 03/10/23 16:39 Urine Bacteria Trace /HPF (NEGATIVE) 03/10/23 16:39 Urine Yeast Few /HPF (NEGATIVE) 03/10/23 16:39 Ur Culture Indicated? No/not indicated 03/10/23 16:39 Stl Occult Blood (IFOB) Positive (NEGATIVE) A 03/11/23 10:21 Stool for White Cells Positive (NEGATIVE) A 03/11/23 10:21 Stl C. diff Tox B Gene Negative (NEGATIVE) 03/11/23 10:21 Stl C. diff [id number] Presumptive negative (NEGATIVE) 03/11/23 10:21 Stool H. pylori Ag Negative (NEGATIVE) 03/11/23 10:21 SARS-CoV-2 (PCR) Negative (NEGATIVE) 03/10/23 14:33 Cryptosporid parvum Ag Negative (NEGATIVE) 03/11/23 10:21 Giardia lamblia Ag Negative (NEGATIVE) 03/11/23 10:21 Influenza Type A (PCR) Negative (NEGATIVE) 03/10/23 14:33 Influenza Type B (PCR) Negative (NEGATIVE) 03/10/23 14:33 RSV (PCR) Negative (NEGATIVE) 03/10/23 14:33 Plan (1) ESBL (extended spectrum beta-lactamase) producing bacteria infection: Status: Acute (2) Bacteremia: Status: Acute (3) Bronchopneumonia: Status: Acute (4) Altered mental status: Status: Acute Qualifiers: Altered mental status type: transient alteration of awareness Qualified Code(s): R40.4 - Transient alteration of awareness (5) Acute febrile illness: Status: Acute (6) Generalized weakness: Status: Acute (7) DM II (diabetes mellitus, type II), controlled: Status: Chronic Qualifiers: Diabetes mellitus complication status: with unspecified complications Diabetes mellitus halfway insulin use: with halfway use Qualified Code(s): E11.8 - Type 2 diabetes mellitus with unspecified complications; Z79.4 - marine oil terminal superintendent (current) use of insulin Plan: OTBS ACHS, HUMULIN R SLIDING SCALE (8) Hypertension: Status: Chronic Qualifiers: Hypertension type: primary hypertension Qualified Code(s): I10 - Essential (primary) hypertension Plan: RESUME TOPROL XL AT HS, RESUME LOPRESSOR
[2023-03-13] MEDS ORDERED: LASIX IVP ONE (15:53)
[2023-03-13 16:08] LABS: ABG BASE EXCESS 3.7 mmol/L (-2.0-2.0); ABG HCO3 27.7 mmol/L (22-26)
[2023-03-13 16:09] LABS: ABG ALLEN TEST POS
--- NOTE | 2023-03-13 16:21 | RAD ---
EXAM:CHEST, PA/LAT ADULTHISTORY:SOB, WHEEZING;COMPARISON:03/12/2023TECHNIQUE: Chest two viewsFINDINGS:Mild cardiomegaly. Nonspecific prominence of the interstitial markings. There are nonspecific bibasilar opacities, right worse than left. These opacities have worsened since the earlier study. There is questionably a small right effusion.IMPRESSION:Increased basilar opacities especially on the right side with trace effusion. Question infection.THIS IS AN ELECTRONICALLY VERIFIED FINAL [id number]/13/2023 4:18 PM - Electronically signed by Campos Fregoso MD
[2023-03-13] MEDS ORDERED: BUTT CREAM (COMPOUND) ONE (17:16)
[2023-03-13] MEDS ORDERED: OMNIPAQUE 350 mg/mL 100 mL BTL 100 ML ONE (17:41)
--- NOTE | 2023-03-13 18:29 | CT ---
EXAM:CTA chestHISTORY:Elevated D-dimer.COMPARISON:Chest two views performed today. CT chest from 01/17/2023.TECHNIQUE:Multiple axial images of the chest were obtained from the thoracic inlet to the upper abdomen after the administration of IV contrast. 3D reconstructions utilizing axial MIPS imaging was performed and reviewed. Dose reduction techniques including Automated Exposure Control (AEC) and adjustment of mA and kV were utilized.FINDINGS:Pulmonary arteries: No evidence of pulmonary emboli.Thoracic aorta: Normal in caliber with mild atherosclerosis.Heart/mediastinum: Normal heart size without a significant pericardial effusion. There is mild calcification of the coronary arteries. No mass or lymphadenopathy.Lungs: Small pleural effusions are seen with dependent bilateral atelectasis. Ground-glass opacities present more superiorly along the lungs likely represent atelectasis versus edema. No other significant abnormality.Upper abdomen: No acute findings. There is cholelithiasis with a 1.4 cm left adrenal nodule that may represent an adenoma.Bones: There are degenerative changes along the spine without acute findings.Additional findings: None.IMPRESSION:1. No CT evidence of pulmonary emboli.2. Small pleural effusions with probable bilateral atelectasis versus edema.3. Additional findings as above.THIS IS AN ELECTRONICALLY VERIFIED FINAL [id number]/13/2023 6:25 PM - Electronically signed by Dilip Callahan MD
[2023-03-13] MEDS: LEVAQUIN PREMIX IV 750 MG 750 MG/150 ML BAG IV SCH (19:10)
[2023-03-13] MEDS: SNACK - Diabetic Appropriate PO SCH (20:14)
[2023-03-13] MEDS: SINGULAIR TAB 10 MG PO SCH (20:57)
[2023-03-13] MEDS: TOPROL XL PO SCH (20:57)
[2023-03-14 05:25] LABS: BASOPHILS % (AUTO) 0.2 % (0.2-1.0); EOSINOPHILS # (AUTO) 0.1 x10^3/uL (0.0-0.2); EOSINOPHILS % (AUTO) 1.1 % (0.9-2.9); HEMATOCRIT 31.6 % (36.0-47.0); HEMOGLOBIN 10.7 g/dL (12.0-16.0); LYMPHOCYTES # (AUTO) 2.9 X10^3/uL (1.3-2.9); LYMPHOCYTES % (AUTO) 27.3 % (21.0-51.0); MEAN CORPUSCULAR HEMOGLOBIN 27.7 pg (27.0-34.0); MEAN CORPUSCULAR HGB CONC 33.7 g/dL (33.0-35.0); MEAN CORPUSCULAR VOLUME 82.3 fL (80.0-100.0); MEAN PLATELET VOLUME 9.1 fL (7.4-11.0); MONOCYTES # (AUTO) 1.1 x10^3/uL (0.3-0.8); MONOCYTES % (AUTO) 10.1 % (0.0-13.0); NEUTROPHILS # (AUTO) 6.5 x10^3/uL (2.2-4.8); NEUTROPHILS % (AUTO) 61.3 % (42.0-75.0); PLATELET COUNT 180 X10^3/uL (150.0-450.0); RED BLOOD COUNT 3.84 X10^6/uL (3.5-5.4); RED CELL DISTRIBUTION WIDTH 15.7 % (11.6-16.5); WHITE BLOOD COUNT 10.6 X10^3/uL (3.6-10.0)
[2023-03-14 05:34] LABS: ALANINE AMINOTRANSFERASE 26 Units/L (12-78); ALBUMIN 2.1 g/dL (3.4-5.0); ALKALINE PHOSPHATASE 153 Units/L (46-116); ASPARTATE AMINO TRANSFERASE 22 Units/L (15-37); BLOOD UREA NITROGEN 6 mg/dL (7-18); CALCIUM 8.6 mg/dL (8.5-10.1); CARBON DIOXIDE 29.5 mmol/L (21-32); CHLORIDE 101 mmol/L (98-107); COR CA(FOR HYPOALB) 10.1 mg/dL (8.5-10.1); CREATININE 1.09 mg/dL (0.55-1.02); GLUCOSE 98 mg/dL (65-99); POTASSIUM 3.2 mmol/L (3.5-5.1); SODIUM 138 mmol/L (136-145); TOTAL PROTEIN 5.9 g/dL (6.4-8.2); eGFR NON BLACK RACES 52 (>60)
[2023-03-14] MEDS: DUONEB 0.5 MG/3 MG (3 mL) NEB PRN (05:46)
[2023-03-14] MEDS ORDERED: CONSULT PHARMACY - POTASSIUM & MAGNESIUM XX SCH ×2 (07:00)
[2023-03-14] MEDS: CLARITIN PO SCH (09:13)
[2023-03-14] MEDS: COZAAR PO SCH (09:13)
[2023-03-14] MEDS: K-DUR TAB 20 MEQ PO SCH ×3 (09:14→20:44)
[2023-03-14] MEDS: PEPCID TAB 20 MG PO SCH ×2 (09:14→20:44)
[2023-03-14] MEDS: MAG-OX TAB PO SCH ×3 (09:14→20:44)
[2023-03-14] MEDS: CHLORTHALIDONE PO SCH (09:14)
[2023-03-14] MEDS: INVanz INJ 1 GRAM VIAL 1 G in NS 100 ML IV 100 ML IV SCH (09:15)
[2023-03-14] MEDS: LEVAQUIN PREMIX IV 750 MG 750 MG/150 ML BAG IV SCH (09:15)
[2023-03-14] MEDS: DIFLUCAN 200 MG IV PREMIX* 200 MG/100 ML BAG IV SCH (09:15)
[2023-03-14] MEDS: LOVENOX INJ 40 MG SYR SC SCH (09:18)
--- NOTE | 2023-03-14 10:32 | PCM.PROG ---
Progress Note - Progress Note for Day of Date of Exam: 03/14/23 - Subjective Subjective: IS A 77 YEAR OLD PATIENT OF OURS. SHE HAS A PMH OF ARTHRITIS, DM II, AND HYPERTENSION. SHE IS CURRENTLY INPATIENT STATUS FOR TREATMENT OF BACTEREMIA, E.COLI UTI, AND BRONCHOPNEUMONIA. TODAY, SHE IS ALERT AND ORIENTED, LYING IN BED ON MORNING ROUNDS. SHE COMPLAINS OF PERSISTENT SHORTNESS OF BREATH AND WEAKNESS THIS MORNING. SHE REPORTS THAT SHORTNESS OF BREATH IS WORSE ON EXERTION. ADDITIONALLY, SHE COMPLAINS OF SOME LOWER ABDOMINAL PAIN AND LOW BACK PAIN. ON EXAMINATION, HEART IS REGULAR IN RATE AND RHYTHM. BILATERAL LUNGS ARE NOTE WITH EXPIRATORY WHEEZING THROUGHOUT. ABDOMEN IS ROUND, SOFT, AND NOTED WITH SUPRAPUBIC TENDERNESS. NORMAL BOWEL SOUNDS NOTED IN ALL QUADRANTS. GOOD RANGE OF MOTION NOTED TO UPPER AND LOWER EXTREMITIES WITH NO EDEMA NOTED. HER VITALS THIS MORNING ARE: 98.3-88-20-98%-133/59. LABS WERE OBTAINED. WBC 10.6, RBC 3.84, HGB 10.7, HCT 31.6, PLT COUNT 180, SODIUM 138, POTASSIUM 3.2, CHLORIDE 101, CARBON DIOXIDE 29.5, BUN 6, CREATININE 1.09, GLUCOSE 98, CALCIUM 8.6, MAGNESIUM 1.8, AST 22, ALT 26, ALK PHOS 153, TOTAL PROTEIN 5.9, ALBUMIN 2.1. URINE AND BLOOD CULTURES WERE BOTH POSITIVE FOR E.COLI ESBL. A CHEST CTA WAS OBTAINED YESTERDAY AND REVEALED: Pulmonary arteries: No evidence of pulmonary emboli.Thoracic aorta: Normal in caliber with mild athe rosclerosis. Heart/mediastinum: Normal heart size without a significant pericardial effusion. There is mild calcification of the coronary arteries. No mass or lymphadenopathy. Lungs: Small pleural effusions are seen with dependent bilateral atelectasis. Ground-glass opacities present more superiorly along the lungs likely represent atelectasis versus edema. No other significant abnormality. Upper abdomen: No acute findings. There is cholelithiasis with a 1.4 cm left adrenal nodule that may represent an adenoma. Bones: There are degenerative changes along the spine without acute findings. SHE IS CURRENTLY RECEIVING NORMAL SALINE AT 80 ML/HR, INVANZ 1G IV DAILY, LEVAQUIN 750MG IV DAILY, DUONEBS QID, PULMICORT NEBS BID, DIFLUCAN 200MG IV DAILY, LOVENOX 40MG SC DAILY, MAG OX 400MG BID, K-DUR 20MEQ PO BID, ZOFRAN 4MG IV Q6H PRN, OTBS ACHS, HUMULIN R SLIDING SCALE, AND TYLENOL 1000MG PO Q4H PRN. HER HOME MEDICATIONS OF CHLORTHALIDONE, COLACE, PEPCID, CLARITIN, TOPROL XL, LOPRESSOR, SINGULAIR WERE RESUMED. TODAY, WE WILL OBTAIN A CT OF THE ABDOMEN/PELVIS WITH AND WITHOUT CONTRAST TO RULE OUT STONES OR PYELONEPHRITIS. OTHERWISE, WE WILL CONTINUE WITH CURRENT PLAN OF CARE. WE WILL FOLLOW UP WITH AM LABS AND CONTINUE TO MONITOR. TIME SPENT ON CLINICAL ASSESSMENT, REVIEWING LABS AND IMAGING, DECISION MAKING, AND DOCUMENTATION GREATER THAN 45 MINUTES. - Past Medical Family Social History Past Med/Fam/Surg Hx: No changes since H&P Allergies: Allergies No Known Drug Allergies Allergy (Verified 09/20/17 11:09) - Review of Systems ROS: No change since H&P - Vital Signs and I&O's Vital Signs: Vital Signs Temperature 98.3 F Temperature 98.1 F Pulse Rate [Left] 88 Pulse Rate [Left] 69 Respiratory Rate 20 Respiratory Rate 18 Blood Pressure [Left Arm] 133/59 Blood Pressure [Left Arm] 170/73 O2 Sat by Pulse Oximetry 98 O2 Sat by Pulse Oximetry 96 Intake and Output: Intake & Output 03/11/23 03/12/23 03/13/23 03/14/23 11:59 11:59 11:59 11:59 Intake Total 240 / 240 2986 / 2986 2948 / 2948 932 / 932 Balance 240 / 240 2986 / 2986 2948 / 2948 932 / 932 - Physical Exam Oriented: Normal Eyes: Normal Ear: Normal Nose: Normal Throat: Normal Respiratory: Generalized, Diminished Cardiovascular: Normal : Normal Auscultation: Bowel Sounds: Normal Palpation: Normal Tenderness: Normal Skin: Normal Musculoskeletal: Normal Psychiatric: Normal Mood Description: Calm Affect: Normal Speech Pattern: Clear, Appropriate - Laboratory and Diagnostics Result Diagrams: 03/14/23 04:32 03/14/23 04:32 Labs: 03/11/23 19:47 Blood Blood Culture Gram Stain - Final 03/11/23 19:47 Blood Blood Culture - Final Escherichia Coli Esbl 03/11/23 19:40 Blood Blood Culture Gram Stain - Final 03/11/23 19:40 Blood Blood Culture - Final Escherichia Coli Esbl 03/11/23 16:25 Urine,Clean Catch Urine Culture - Final 03/11/23 10:21 Stool Stool Culture - Final 03/11/23 10:21 Stool - Final 03/10/23 15:07 Blood Blood Culture Gram Stain - Final 03/10/23 15:07 Blood Blood Culture - Final Escherichia Coli Esbl 03/10/23 14:55 Blood Blood Culture Gram Stain - Final 03/10/23 14:55 Blood Blood Culture - Final Escherichia Coli Esbl Laboratory WBC 10.6 X10^3/uL (3.6-10.0) H 03/14/23 04:32 RBC 3.84 X10^6/uL (3.5-5.4) 03/14/23 04:32 Hgb 10.7 g/dL (12.0-16.0) L 03/14/23 04:32 Hct 31.6 % (36.0-47.0) L 03/14/23 04:32 MCV 82.3 fL (80.0-100.0) 03/14/23 04:32 MCH 27.7 pg (27.0-34.0) 03/14/23 04:32 MCHC 33.7 g/dL (33.0-35.0) 03/14/23 04:32 RDW 15.7 % (11.6-16.5) 03/14/23 04:32 Plt Count 180 X10^3/uL (150.0-450.0) 03/14/23 04:32 Plt Count Comment Adequate (ADEQUATE) 03/10/23 14:55 MPV 9.1 fL (7.4-11.0) 03/14/23 04:32 Neut % (Auto) 61.3 % (42.0-75.0) 03/14/23 04:32 Lymph % (Auto) 27.3 % (21.0-51.0) 03/14/23 04:32 [place] % (Auto) 10.1 % (0.0-13.0) 03/14/23 04:32 Eos % (Auto) 1.1 % (0.9-2.9) 03/14/23 04:32 Baso % (Auto) 0.2 % (0.2-1.0) 03/14/23 04:32 Neut # (Auto) 6.5 x10^3/uL (2.2-4.8) H 03/14/23 04:32 Lymph # (Auto) 2.9 X10^3/uL (1.3-2.9) 03/14/23 04:32 [place]eller # (Auto) 1.1 x10^3/uL (0.3-0.8) H 03/14/23 04:32 Eos # (Auto) 0.1 x10^3/uL (0.0-0.2) 03/14/23 04:32 Baso # (Auto) 0.0 X10^3/uL (0.0-0.1) 03/14/23 04:32 Absolute Nucleated RBC 0.0 /100WBC 03/14/23 04:32 Total Counted 100 03/10/23 14:55 Neutrophils % (Manual) 93 % (39-76) H 03/10/23 14:55 Lymphocytes % (Manual) 5 % (13-43) L 03/10/23 14:55 Monocytes % (Manual) 2 % (4-9) L 03/10/23 14:55 Plt Morphology Comment Normal (NORMAL) 03/10/23 14:55 RBC Morphology Normal (NORMAL) 03/10/23 14:55 D-Dimer 1.95 ug/ml (0.0-0.57) H 03/13/23 16:33 Sample Site Rrad 03/13/23 16:03 ABG pH 7.460 (7.35-7.45) H 03/13/23 16:03 ABG pCO2 39.0 mmHg (35.0-45.0) 03/13/23 16:03 ABG pO2 49.0 mmHg (80.0-100.0) L* 03/13/23 16:03 ABG HCO3 27.7 mmol/L (22-26) H 03/13/23 16:03 ABG O2 Saturation 87.0 % (90-100) L 03/13/23 16:03 ABG Base Excess 3.7 mmol/L (-2.0-2.0) H 03/13/23 16:03 Eric Test Pos 03/13/23 16:03 A-a Gradient 52.0 mmHg 03/13/23 16:03 FiO2 21.0 03/13/23 16:03 Blood Gas Comments Pt ariadna well. kg. 03/13/23 16:03 Sodium 138 mmol/L (136-145) 03/14/23 04:32 Corrected Sodium TNP 03/14/23 04:32 Potassium 3.2 mmol/L (3.5-5.1) L 03/14/23 04:32 Chloride 101 mmol/L (98-107) 03/14/23 04:32 Carbon Dioxide 29.5 mmol/L (21-32) 03/14/23 04:32 BUN 6 mg/dL (7-18) L 03/14/23 04:32 Creatinine 1.09 mg/dL (0.55-1.02) H 03/14/23 04:32 Est GFR (MDRD) Af Amer > 60 (>60) 03/14/23 04:32 Est GFR (MDRD) Non-Af 52 (>60) L 03/14/23 04:32 Glucose 98 mg/dL (65-99) 03/14/23 04:32 POC Glucose (mg/dL) 97 mg/dL (65-99) 03/14/23 05:25 Lactic Acid 0.6 mmol/L (0.4-2.0) 03/10/23 19:07 Calcium 8.6 mg/dL (8.5-10.1) 03/14/23 04:32 Corrected Calcium 10.1 mg/dL (8.5-10.1) 03/14/23 04:32 Magnesium 1.8 mg/dL (2.0-2.9) L 03/14/23 04:32 Total Bilirubin 0.80 mg/dL (0.2-1.0) 03/14/23 04:32 AST 22 Units/L (15-37) 03/14/23 04:32 ALT 26 Units/L (12-78) 03/14/23 04:32 Alkaline Phosphatase 153 Units/L (46-116) H 03/14/23 04:32 B-Natriuretic Peptide 154 pg/mL (0-79) H 03/13/23 04:15 Total Protein 5.9 g/dL (6.4-8.2) L 03/14/23 04:32 Albumin 2.1 g/dL (3.4-5.0) L 03/14/23 04:32 Globulin 3.8 g/dL (2.5-4.5) 03/14/23 04:32 Albumin/Globulin Ratio 0.6 Ratio (1.1-2.1) L 03/14/23 04:32 Lipase 49 Units/L (73-393) L 03/10/23 14:55 Specimen Type Clean catch urine 03/10/23 16:39 Urine Color Dark yellow (YELLOW) 03/10/23 16:39 Urine Appearance Slightly hazy (CLEAR) 03/10/23 16:39 Urine pH 5.0 (5.0 - 8.0) 03/10/23 16:39 Ur Specific [place] 1.020 (1.000-1.030) 03/10/23 16:39 Urine Protein 1+ (NEGATIVE) 03/10/23 16:39 Urine Glucose (UA) Negative (NEGATIVE) 03/10/23 16:39 Urine Ketones 3+ (NEGATIVE) 03/10/23 16:39 Urine Blood 4+ (NEGATIVE) 03/10/23 16:39 Urine Nitrite Negative (NEGATIVE) 03/10/23 16:39 Urine Bilirubin Negative (NEGATIVE) 03/10/23 16:39 Urine Urobilinogen Normal (NORMAL) 03/10/23 16:39 Ur Leukocyte Esterase Negative (NEGATIVE) 03/10/23 16:39 Urine RBC 3-5 /HPF (0-3) A 03/10/23 16:39 Urine WBC 0-2 /HPF (0-5) 03/10/23 16:39 Ur Squamous Epith Cells Many /HPF (NEGATIVE) 03/10/23 16:39 Urine Bacteria Trace /HPF (NEGATIVE) 03/10/23 16:39 Urine Yeast Few /HPF (NEGATIVE) 03/10/23 16:39 Ur Culture Indicated? No/not indicated 03/10/23 16:39 Stl Occult Blood (IFOB) Positive (NEGATIVE) A 03/11/23 10:21 Stool for White Cells Positive (NEGATIVE) A 03/11/23 10:21 Stl C. diff Tox B Gene Negative (NEGATIVE) 03/11/23 10:21 Stl C. diff [id number] Presumptive negative (NEGATIVE) 03/11/23 10:21 Stool H. pylori Ag Negative (NEGATIVE) 03/11/23 10:21 SARS-CoV-2 (PCR) Negative (NEGATIVE) 03/10/23 14:33 Cryptosporid parvum Ag Negative (NEGATIVE) 03/11/23 10:21 Giardia lamblia Ag Negative (NEGATIVE) 03/11/23 10:21 Influenza Type A (PCR) Negative (NEGATIVE) 03/10/23 14:33 Influenza Type B (PCR) Negative (NEGATIVE) 03/10/23 14:33 RSV (PCR) Negative (NEGATIVE) 03/10/23 14:33 - Plan (1) ESBL (extended spectrum beta-lactamase) producing bacteria infection Status: Acute Plan: NORMAL SALINE AT 80 ML/HR, INVANZ 1G IV DAILY, LEVAQUIN 750MG IV DAILY, DUONEBS QID, PULMICORT NEBS BID, DIFLUCAN 200MG IV DAILY, LOVENOX 40MG SC DAILY, MAG OX 400MG BID, K-DUR 20MEQ PO BID, ZOFRAN 4MG IV Q6H PRN, OTBS ACHS, HUMULIN R SLIDING SCALE, AND TYLENOL 1000MG PO Q4H PRN. 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
[2023-03-14] MEDS: TYLENOL 500 MG TAB EXTRA STRENGTH PO PRN (10:41)
[2023-03-14] MEDS ORDERED: OMNIPAQUE 350 mg/mL 100 mL BTL 100 ML ONE (11:07)
[2023-03-14] MEDS: DUONEB 0.5 MG/3 MG (3 mL) NEB SCH ×3 (12:28→21:00)
--- NOTE | 2023-03-14 13:10 | CT ---
EXAM:ABDOMEN/PELVIS W&W/O CONHISTORY:stone search, rule out pyelonephritis;COMPARISON:NoneTECHNIQUE: Multiple CT axial images of the abdomen and pelvis were obtained without and with IV contrast. Coronal and sagittal images were reconstructed. Dose reduction techniques included Automated Exposure Control (AEC) and adjustment of mA and kV.FINDINGS:Without contrast: Atherosclerotic calcification is present in the coronary arteries. No abnormal calcifications are present in the kidneys, ureters, or urinary bladder. Low-density nodule in the right kidney measures 12 mm with Hounsfield units measuring 6.With contrast: Renal enhancement is uniform and symmetric. There is no hydronephrosis or significant perirenal edema.Mass in the right kidney does not have significant enhancement but there is a slightly irregular wall. This may represent a complex cyst.The ureters are not dilated. The bladder is normally distended. It has no wall thickening or perivesical edema.But there is edema in the left retroperitoneum. This is mostly located around the gonadal vein which is near this location. There are small lymph nodes in the left lower retroperitoneum in the same vicinity located in the common iliac and proximal external iliac distribution.The findings could represent thrombophlebitis of the gonadal vein. The other structures in this vicinity or the inferior mesenteric artery which has a normal caliber. The ureter which is nondilated and appears along the posterior margin of the edema.Small bilateral pleural effusions are present with adjacent atelectasis. Mild cardiomegaly. Atherosclerotic calcification is present in the coronary arteries.Enhancing vascular structure in the dome of the right lobe is better visualized on the CT chest 01/17/2023. This may represent a shunt. Gallbladder, spleen, right adrenal gland, and pancreas are unremarkable. Small nodule in the left adrenal gland is stable, possibly an adenoma.The bowel is not dilated. There is no wall thickening in the bowel or edema around the bowel. There are diverticula in the colon. But there is no wall thickening or pericolonic edema to suggest acute diverticulitis.Degenerative changes are present in the spine.IMPRESSION:1. Nonspecific left retroperitoneal edema suggesting thrombophlebitis of the gonadal vein2. No urolithiasis or hydronephrosis; no abnormal enhancement pattern to suggest pyelonephritis3. Small pleural effusions with atelectasisTHIS IS AN ELECTRONICALLY VERIFIED FINAL [id number]/2023 1:07 PM - Electronically signed by Jaime Syed MD
[2023-03-14] MEDS: TOPROL XL PO SCH (20:43)
[2023-03-14] MEDS: SINGULAIR TAB 10 MG PO SCH (20:44)
[2023-03-14] MEDS: SNACK - Diabetic Appropriate PO SCH (20:44)
[2023-03-14] MEDS: PULMICORT NEB TX 0.5 MG NEB SCH (21:00)
[2023-03-15 06:59] LABS: BASOPHILS # (AUTO) 0.1 X10^3/uL (0.0-0.1); BASOPHILS % (AUTO) 0.9 % (0.2-1.0); EOSINOPHILS # (AUTO) 0.2 x10^3/uL (0.0-0.2); EOSINOPHILS % (AUTO) 1.5 % (0.9-2.9); LYMPHOCYTES # (AUTO) 3.4 X10^3/uL (1.3-2.9); LYMPHOCYTES % (AUTO) 32.5 % (21.0-51.0); MEAN CORPUSCULAR HEMOGLOBIN 27.6 pg (27.0-34.0); MEAN CORPUSCULAR HGB CONC 33.4 g/dL (33.0-35.0); MEAN CORPUSCULAR VOLUME 82.7 fL (80.0-100.0); MONOCYTES # (AUTO) 0.7 x10^3/uL (0.3-0.8); MONOCYTES % (AUTO) 6.3 % (0.0-13.0); NEUTROPHILS # (AUTO) 6.1 x10^3/uL (2.2-4.8); NEUTROPHILS % (AUTO) 58.8 % (42.0-75.0); PLATELET COUNT 242 X10^3/uL (150.0-450.0); RED CELL DISTRIBUTION WIDTH 15.9 % (11.6-16.5); WHITE BLOOD COUNT 10.4 X10^3/uL (3.6-10.0)
[2023-03-15 07:18] LABS: ALANINE AMINOTRANSFERASE 29 Units/L (12-78); ALBUMIN 2.3 g/dL (3.4-5.0); ALKALINE PHOSPHATASE 178 Units/L (46-116); ASPARTATE AMINO TRANSFERASE 27 Units/L (15-37); BLOOD UREA NITROGEN 6 mg/dL (7-18); CALCIUM 9.3 mg/dL (8.5-10.1); CARBON DIOXIDE 29.8 mmol/L (21-32); CHLORIDE 104 mmol/L (98-107); COR CA(FOR HYPOALB) 10.7 mg/dL (8.5-10.1); COR NA(FOR HYPERGLY) 142 mmol/L (136-145); GLUCOSE 123 mg/dL (65-99); MAGNESIUM 1.9 mg/dL (2.0-2.9); SODIUM 141 mmol/L (136-145); TOTAL PROTEIN 6.4 g/dL (6.4-8.2); eGFR NON BLACK RACES 51 (>60)
[2023-03-15] MEDS: PULMICORT NEB TX 0.5 MG NEB SCH ×2 (07:53→09:07)
[2023-03-15] MEDS: DUONEB 0.5 MG/3 MG (3 mL) NEB SCH ×2 (07:53→09:06)
[2023-03-15] MEDS: LOVENOX INJ 40 MG SYR SC SCH (09:26)
[2023-03-15] MEDS: K-DUR TAB 20 MEQ PO SCH (09:26)
[2023-03-15] MEDS: DIFLUCAN 200 MG IV PREMIX* 200 MG/100 ML BAG IV SCH (09:26)
[2023-03-15] MEDS: LEVAQUIN PREMIX IV 750 MG 750 MG/150 ML BAG IV SCH (09:26)
[2023-03-15] MEDS: INVanz INJ 1 GRAM VIAL 1 G in NS 100 ML IV 100 ML IV SCH (09:26)
[2023-03-15] MEDS: CLARITIN PO SCH (09:26)
[2023-03-15] MEDS: COZAAR PO SCH (09:27)
[2023-03-15] MEDS: PEPCID TAB 20 MG PO SCH (09:27)
[2023-03-15] MEDS: MAG-OX TAB PO SCH (09:27)
[2023-03-15 11:58] VITALS: RESP 20
[2023-03-15 12:30] VITALS: BP 182/78; PULSE 72; TEMP 98.3; O2SAT 98
== END 2023-03-15 14:30 | disposition home or self-care (01) | DRG 194 ==
LOC: MED/SURG 14:23 → ER 14:23 → OBSVTOIN 17:25 → MED/SURG 18:26
PROVIDERS: ADMIT Internal Medicine; ATTEND Internal Medicine
DX: E87.6 Hypokalemia; B96.29 Other Escherichia coli [E. coli] as the cause of diseases classified elsewhere; J18.0 Bronchopneumonia, unspecified organism; N39.0 Urinary tract infection, site not specified; I10 Essential (primary) hypertension; R51.9 Headache, unspecified; K92.1 Melena; Z79.4 Long term (current) use of insulin; R78.81 Bacteremia; R53.1 Weakness; Z16.12 Extended spectrum beta lactamase (ESBL) resistance; R19.7 Diarrhea, unspecified; E83.42 Hypomagnesemia; K80.80 Other cholelithiasis without obstruction; Z20.822 Contact with and (suspected) exposure to COVID-19; J90 Pleural effusion, not elsewhere classified; R06.02 Shortness of breath; M19.90 Unspecified osteoarthritis, unspecified site; R26.89 Other abnormalities of gait and mobility; R40.4 Transient alteration of awareness; R00.0 Tachycardia, unspecified; E11.65 Type 2 diabetes mellitus with hyperglycemia